=== PATIENT | female | born 1960 | race Caucasian/White ===

== ENCOUNTER 2017-09-29 13:18 | Inpatient (IN) ==
[2017-09-29] MEDS ORDERED: ONDANSETRON 4 MG/2 ML VIAL IV STA (14:28)
[2017-09-29] MEDS ORDERED: MORPHINE 2 MG/1 ML SYRINGE IV STA (14:28)
[2017-09-29] MEDS ORDERED: NITROGLYCERIN 2% OINT 1 INCH/GM PACK TOP STA (14:28)
[2017-09-29] MEDS ORDERED: FUROSEMIDE 100 MG/10 ML VIAL IV STA (14:28)
[2017-09-29] MEDS ORDERED: methylPREDNISolone SOD SUC 125 MG/2 ML VIAL IV STA (14:28)
[2017-09-29] MEDS ORDERED: ALBUTEROL 2.5 MG/3 ML NEB RESP TX SCH ×2 (14:30→18:32)
[2017-09-29] MEDS ORDERED: NITROGLYCERIN 2% OINT 1 INCH/GM PACK TOP ONE (14:48)
[2017-09-29] MEDS ORDERED: FUROSEMIDE 20 MG/2 ML VIAL ONE (14:48)
[2017-09-29] MEDS ORDERED: methylPREDNISolone SOD SUC 125 MG/2 ML VIAL ONE (14:48)
[2017-09-29] MEDS ORDERED: ONDANSETRON 4 MG/2 ML VIAL ONE (14:48)
[2017-09-29 15:16] LABS: Basophils # 0.1 10*3/uL (0.0-0.2); Basophils % 0.7 % (0.0-0.8); Eosinophils # 0.1 10*3/uL (0.0-0.87); Eosinophils % 1.7 % (0.00-10.9); Hematocrit 40.8 VOL% (35.7-47.0); Hemoglobin 13.4 GM/DL (12.0-16.0); Immature Granulocytes % 0.4 %; Immature Granulocytes Absolute 0.03 #; Lymphocytes # 1.8 10*3/uL (1.4-4.0); Lymphocytes % 21.9 % (21.3-54.2); Mean Corpuscular HGB Conc 32.8 GM/DL (32-36); Mean Corpuscular Hemoglobin 30 PG (27-34); Mean Corpuscular Volume 90.9 FL (87-102); Mean Platelet Volume 11.2 FL (9.6-12.0); Monocytes # 0.6 10*3/uL (0.11-0.8); Monocytes % 6.7 % (1.7-12.7); Neutrophils # 5.7 10*3/uL (1.4-7.4); Neutrophils % 68.6 % (38.7-73.9); Platelet Count 242 T/CUMM (130-400); Red Blood Count 4.49 MC/CUMM (3.8-5.5); Red Cell Distribution Width 13.8 % (9.3-17.3); White Blood Count 8.4 T/CUMM (4-12)
[2017-09-29 15:21] LABS: Apearance,Urine CLEAR (Clear); Bilirubin,Urine Negative (Negative); Blood, Urine Negative (Negative); Glucose,Urine (UA) Negative (Negative); Hyaline Casts,Urine 1 /LPF (0-3); Ketones,Urine Negative (Negative); Mucus,Urine Occasional /LPF (Occasional); Nitrite,Urine Negative (Negative); Protein,Urine Negative; Squamous Epithelial Cell,Urine Occasional /HPF (0-10); Urine Color Colorless (Yellow); Urine Specific Gravity 1.004 (1.001-1.035); Urine Urobilinogen < 2.0 EU/DL (0.2-1.0)
[2017-09-29 15:26] LABS: INR 0.9
[2017-09-29 15:34] LABS: Barbiturates Screen,Urine Negative (Negative); Benzodiazepines Screen,Urine Negative (Negative); Cannabinoid Screen,Urine Negative (Negative); Opiate Screen,Urine Negative (Negative); Phencyclidine Screen,Urine Negative (Negative)
[2017-09-29 15:52] LABS: Albumin 3.5 G/DL (3.4-5.0); Bilirubin,Total 1.1 MG/DL (0.2-1.0); Calcium 8.8 MG/DL (8.5-10.1); Magnesium 2.3 MG/DL (1.8-2.4); Osmolality,Calculated 281.1 MOS/KG (273-304); Potassium 4.2 MMOL/L (3.5-5.1); Total Protein 7.9 G/DL (6.4-8.3)
[2017-09-29 15:53] LABS: Troponin I Only 0.054 NG/ML (0.00-0.045)
[2017-09-29] MEDS ORDERED: ASPIRIN 325 MG TABLET PO PRN (18:32)
[2017-09-29] MEDS ORDERED: ACETAMINOPHEN 325 MG TABLET PO PRN (18:32)
[2017-09-30 05:49] LABS: Basophils % 0.1 % (0.0-0.8); Hematocrit 40.4 VOL% (35.7-47.0); Immature Granulocytes % 0.7 %; Immature Granulocytes Absolute 0.06 #; Lymphocytes # 0.6 10*3/uL (1.4-4.0); Lymphocytes % 6.2 % (21.3-54.2); Mean Corpuscular HGB Conc 32.2 GM/DL (32-36); Mean Corpuscular Hemoglobin 29 PG (27-34); Mean Corpuscular Volume 89.8 FL (87-102); Mean Platelet Volume 11.7 FL (9.6-12.0); Monocytes # 0.1 10*3/uL (0.11-0.8); Neutrophils # 8.2 10*3/uL (1.4-7.4); Platelet Count 230 T/CUMM (130-400); Red Cell Distribution Width 13.4 % (9.3-17.3); White Blood Count 8.9 T/CUMM (4-12)
[2017-09-30 06:10] LABS: Band Neutrophils 1 % (0-10); Hypochromasia 1+; Lymphocytes 5 % (20-55); Microcytosis 1+; Segmented Neutrophils 89 % (50-85); Total Cells Counted 100
[2017-09-30 06:11] LABS: Platelet Estimate Normal
[2017-09-30 06:27] LABS: Osmolality,Calculated 284.1 MOS/KG (273-304); Potassium 4.3 MMOL/L (3.5-5.1)
[2017-09-30] MEDS ORDERED: FUROSEMIDE 40 MG/4 ML VIAL IV SCH (08:00)
[2017-09-30] MEDS ORDERED: IBUPROFEN 600 MG TABLET PO PRN (08:25)
[2017-09-30] MEDS ORDERED: LISINOPRIL 5 MG TABLET PO SCH (09:00)
[2017-09-30 16:22] VITALS: BP 124/58
[2017-09-30] MEDS ORDERED: IBUPROFEN 600 MG TABLET PO SCH (21:00)
[2017-09-30] MEDS ORDERED: CARVEDILOL 3.125 MG TABLET PO SCH (21:00)
[2017-10-01] MEDS ORDERED: LISINOPRIL 2.5 MG TABLET PO SCH (09:00)
[2017-10-01] MEDS ORDERED: METOPROLOL SUCCINATE XL 25 MG TABLET PO SCH (09:00)
== END 2017-09-30 16:15 | disposition home or self-care (01) | DRG 194 ==
LOC: EDBD → EDUNIT# → N.ED 13:18 → SUATTDRO 15:42 → N.EDINP 15:42 → N.4E 18:24
PROVIDERS: ATTEND Internal Medicine

== ENCOUNTER 2020-07-15 04:19 | Inpatient (IN) ==
[2020-07-15] MEDS ORDERED: ONDANSETRON 4 MG/2 ML VIAL IV PRN (05:49)
[2020-07-15] MEDS ORDERED: ALBUTEROL 2.5 MG/3 ML NEB RESP TX PRN (05:49)
[2020-07-15] MEDS ORDERED: PANTOPRAZOLE 40 MG VIAL IV SCH (06:00)
[2020-07-15] MEDS: NOREPINEPHRINE 8 MG in SODIUM CHLORIDE 0.9% 242 ML IV SCH ×2 (06:18→13:47)
[2020-07-15] MEDS ORDERED: ATROPINE 1 MG/10 ML SYRINGE ONE (06:20)
[2020-07-15] MEDS ORDERED: SODIUM BICARBONATE 50 MEQ/50 ML SYRINGE IV ONE (06:20)
[2020-07-15] MEDS ORDERED: EPINEPHrine 1 MG/10 ML SYRINGE ONE (06:20)
[2020-07-15] MEDS: DOPamine 800 MG/250 ML PREMIX IV PRN ×2 (06:23→22:07)
[2020-07-15] MEDS ORDERED: SODIUM CHLORIDE 0.9% 1,000 ML IV ONE (06:42)
[2020-07-15] MEDS ORDERED: MIDAZOLAM 2 MG/2 ML VIAL IV ONE (07:28)
[2020-07-15] MEDS ORDERED: MIDAZOLAM 2 MG/2 ML VIAL IV PRN (07:28)
[2020-07-15 07:32] LABS: ABG Base Excess -6.7 MMOL/L (-2.5-2.5); ABG Oxygen Saturation 99.6 % (95-100); ABG PCO2 39.6 MM HG (35-48); ABG PH 7.298 (7.35-7.45); ABG TCO2 17.3 MMOL/L (23-27)
[2020-07-15 07:37] LABS: Basophils # 0.1 10*3/uL (0.0-0.2); Basophils % 0.3 % (0.0-0.8); Hematocrit 37.6 VOL% (35.7-47.0); Hemoglobin 12.2 GM/DL (12.0-16.0); Immature Granulocytes % 2.2 %; Immature Granulocytes Absolute 0.82 #; Lymphocytes # 0.9 10*3/uL (1.4-4.0); Lymphocytes % 2.5 % (21.3-54.2); Mean Corpuscular HGB Conc 32.4 GM/DL (32-36); Mean Corpuscular Volume 88.3 FL (87-102); Mean Platelet Volume 9.7 FL (9.6-12.0); Monocytes % 4.8 % (1.7-12.7); NRBC # 0.02 10*3/uL; Neutrophils % 90.2 % (38.7-73.9); Platelet Count 163 T/CUMM (130-400); Red Blood Count 4.26 MC/CUMM (3.8-5.5); Red Cell Distribution Width 14.4 % (9.3-17.3); White Blood Count 36.7 T/CUMM (4-12)
[2020-07-15] MEDS ORDERED: fentaNYL 100 MCG/2 ML VIAL IV PRN (07:37)
[2020-07-15 07:53] LABS: INR 2.1; PT Patient Result 21.6 SECS (9.8-11.9); Partial Thromboplastin Time 33.7 SECS (23.9-33.8)
[2020-07-15] MEDS ORDERED: POTASSIUM CHLORIDE RIDER 20 MEQ in PREMIX 1 EACH IV PRN (08:00)
[2020-07-15] MEDS: MIDAZOLAM 100 MG in SODIUM CHLORIDE 0.9% 80 ML IV PRN ×2 (08:06→23:50)
[2020-07-15 08:07] LABS: CKMB % 3.1 %
[2020-07-15] MEDS: fentaNYL INJ 1,250 MCG in SODIUM CHLORIDE 0.9% 225 ML IV SCH ×3 (08:10→23:48)
[2020-07-15] MEDS: CISATRACURIUM 200 MG in SODIUM CHLORIDE 0.9% 180 ML IV PRN (08:12)
[2020-07-15 08:13] LABS: Alanine Aminotransferase 2133 U/L (13-56); Albumin 2.4 G/DL (3.4-5.0); Alkaline Phosphatase 131 U/L (45-117); Aspartate Amino Transferase 5008 U/L (0-37); Blood Urea Nitrogen 36 MG/DL (7-18); Calcium 8.8 MG/DL (8.5-10.1); Estimated Glom Filtration Rate 20 ML/MIN; Glucose 142 MG/DL (74-106); Osmolality,Calculated 273.5 MOS/KG (273-304); Total Protein 6.1 G/DL (6.4-8.3)
[2020-07-15 08:14] LABS: Bacteria,Urine Moderate /HPF (Few); Bilirubin,Urine Negative (Negative); Blood, Urine Large mg/dL (Negative); Glucose,Urine (UA) Negative (Negative); Ketones,Urine Negative (Negative); Nitrite,Urine Negative (Negative); Protein,Urine 100 MG/DL; RBC,Urine 70 /HPF (0-4); Squamous Epithelial Cell,Urine Occasional /HPF (0-10); Urine Appearance CLOUDY (Clear); Urine Color Yellow (Yellow); Urine Urobilinogen < 2.0 EU/DL (0.2-1.0); WBC,Urine 95 /HPF (0-6)
[2020-07-15 08:24] LABS: Band Neutrophils 16 % (0-10); Lymphocytes 1 % (20-55); Segmented Neutrophils 78 % (50-85); Total Cells Counted 100
[2020-07-15 08:25] LABS: Hypochromasia 1+; Microcytosis Slight; Platelet Estimate Adequate
[2020-07-15] MEDS: LACTATED RINGERS 1,000 ML IV SCH ×2 (09:34→19:40)
[2020-07-15 10:03] LABS: Troponin I 1.47 NG/ML (0.00-0.045)
[2020-07-15] MEDS: INSULIN REGULAR 100 UNIT/ML IV SCH ×4 (10:03→20:28)
[2020-07-15] MEDS: PANTOPRAZOLE 40 MG VIAL IV SCH (10:07)
[2020-07-15] MEDS: methylPREDNISolone SOD SUC 40 MG/1 ML VIAL IV SCH ×3 (10:08→23:13)
[2020-07-15] MEDS: MEROPENEM 500 MG in SODIUM CHLORIDE 0.9% 100 ML IV SCH ×3 (10:25→20:31)
[2020-07-15 12:06] LABS: ABG HCO3 18.8 MMOL/L (20-26); ABG Oxygen Saturation 98.9 % (95-100); ABG PCO2 31.1 MM HG (35-48); ABG PH 7.399 (7.35-7.45); ABG PO2 152.3 MM HG (80-95); ABG TCO2 19.7 MMOL/L (23-27)
[2020-07-15 13:40] LABS: Basophils # 0.1 10*3/uL (0.0-0.2); Basophils % 0.2 % (0.0-0.8); Hematocrit 36.9 VOL% (35.7-47.0); Hemoglobin 12.2 GM/DL (12.0-16.0); Immature Granulocytes % 0.9 %; Immature Granulocytes Absolute 0.31 #; Lymphocytes # 0.9 10*3/uL (1.4-4.0); Lymphocytes % 2.5 % (21.3-54.2); Mean Corpuscular HGB Conc 33.1 GM/DL (32-36); Mean Corpuscular Volume 85.8 FL (87-102); Mean Platelet Volume 10.1 FL (9.6-12.0); Monocytes % 3.3 % (1.7-12.7); Neutrophils % 93.1 % (38.7-73.9); Platelet Count 137 T/CUMM (130-400)
[2020-07-15 13:47] LABS: CKMB % 3.6 %; Calcium 8.5 MG/DL (8.5-10.1); Osmolality,Calculated 280.4 MOS/KG (273-304)
[2020-07-15 13:55] LABS: PT Patient Result 20.6 SECS (9.8-11.9); Partial Thromboplastin Time 31.9 SECS (23.9-33.8)
[2020-07-15 14:25] LABS: Troponin I 1.43 NG/ML (0.00-0.045)
[2020-07-15 18:40] LABS: Giant Platelets 1+; Hypochromasia 1+; Lymphocytes 4 % (20-55); Segmented Neutrophils 94 % (50-85); Total Cells Counted 100
[2020-07-15 20:01] LABS: Basophils % 0.2 % (0.0-0.8); Hematocrit 35.4 VOL% (35.7-47.0); Hemoglobin 11.9 GM/DL (12.0-16.0); Immature Granulocytes % 0.9 %; Immature Granulocytes Absolute 0.24 #; Lymphocytes # 0.9 10*3/uL (1.4-4.0); Lymphocytes % 3.5 % (21.3-54.2); Mean Corpuscular HGB Conc 33.6 GM/DL (32-36); Mean Corpuscular Volume 85.5 FL (87-102); Mean Platelet Volume 10.3 FL (9.6-12.0); Monocytes % 2.6 % (1.7-12.7); Neutrophils % 92.8 % (38.7-73.9); Platelet Count 119 T/CUMM (130-400); Red Blood Count 4.14 MC/CUMM (3.8-5.5); White Blood Count 25.8 T/CUMM (4-12)
[2020-07-15 20:13] LABS: INR 1.9; PT Patient Result 19.5 SECS (9.8-11.9); Partial Thromboplastin Time 29.6 SECS (23.9-33.8)
[2020-07-15 20:19] LABS: Blood Urea Nitrogen 46 MG/DL (7-18); Calcium 8.3 MG/DL (8.5-10.1); Estimated Glom Filtration Rate 19 ML/MIN; Glucose 153 MG/DL (74-106); Osmolality,Calculated 282.2 MOS/KG (273-304)
[2020-07-15 20:50] LABS: Lymphocytes 4 % (20-55); Segmented Neutrophils 94 % (50-85); Total Cells Counted 100
[2020-07-15] MEDS ORDERED: ENOXAPARIN 40 MG/0.4 ML SYRINGE SUBCUT SCH (21:00)
[2020-07-15] MEDS ORDERED: MINERAL OIL/PETROLATUM OPH OINT 3.5 GM TUBE BOTH EYES PRN (23:28)
[2020-07-16] MEDS: INSULIN REGULAR 100 UNIT/ML IV SCH ×10 (00:26→23:25)
[2020-07-16] MEDS: MINERAL OIL/PETROLATUM OPH OINT 3.5 GM TUBE BOTH EYES SCH ×6 (00:28→20:43)
[2020-07-16 01:01] LABS: INR 1.9; PT Patient Result 19.3 SECS (9.8-11.9); Partial Thromboplastin Time 31.1 SECS (23.9-33.8)
[2020-07-16 01:16] LABS: Band Neutrophils 6 % (0-10); Segmented Neutrophils 93 % (50-85)
[2020-07-16 01:17] LABS: Platelet Estimate Normal; Total Cells Counted 100
[2020-07-16] MEDS: CISATRACURIUM 200 MG in SODIUM CHLORIDE 0.9% 180 ML IV PRN ×2 (01:32→21:07)
[2020-07-16 01:43] LABS: Basophils % 0.2 % (0.0-0.8); Hematocrit 37.8 VOL% (35.7-47.0); Hemoglobin 12.6 GM/DL (12.0-16.0); Immature Granulocytes % 0.7 %; Immature Granulocytes Absolute 0.17 #; Lymphocytes # 0.8 10*3/uL (1.4-4.0); Lymphocytes % 3.4 % (21.3-54.2); Mean Corpuscular HGB Conc 33.3 GM/DL (32-36); Mean Corpuscular Volume 86.1 FL (87-102); Mean Platelet Volume 10.6 FL (9.6-12.0); Monocytes % 3.2 % (1.7-12.7); NRBC # 0.02 10*3/uL; Neutrophils % 92.5 % (38.7-73.9); Platelet Count 126 T/CUMM (130-400); Red Blood Count 4.39 MC/CUMM (3.8-5.5); White Blood Count 23.7 T/CUMM (4-12)
[2020-07-16 02:00] LABS: Blood Urea Nitrogen 49 MG/DL (7-18); Estimated Glom Filtration Rate 19 ML/MIN; Glucose 142 MG/DL (74-106); Osmolality,Calculated 282.2 MOS/KG (273-304)
[2020-07-16] MEDS: MEROPENEM 500 MG in SODIUM CHLORIDE 0.9% 100 ML IV SCH ×4 (03:00→20:42)
[2020-07-16 04:17] LABS: ABG HCO3 18.8 MMOL/L (20-26); ABG Oxygen Saturation 96.4 % (95-100); ABG PCO2 35.4 MM HG (35-48); ABG PH 7.323 (7.35-7.45); ABG TCO2 16.2 MMOL/L (23-27)
[2020-07-16 04:58] LABS: Basophils # 0.1 10*3/uL (0.0-0.2); Basophils % 0.3 % (0.0-0.8); Hematocrit 39.4 VOL% (35.7-47.0); Hemoglobin 13.2 GM/DL (12.0-16.0); Immature Granulocytes Absolute 0.26 #; Lymphocytes # 1.1 10*3/uL (1.4-4.0); Lymphocytes % 3.9 % (21.3-54.2); Mean Corpuscular HGB Conc 33.5 GM/DL (32-36); Mean Corpuscular Volume 85.3 FL (87-102); Mean Platelet Volume 11.4 FL (9.6-12.0); Monocytes % 3.4 % (1.7-12.7); Neutrophils % 91.4 % (38.7-73.9); Platelet Count 118 T/CUMM (130-400); Red Blood Count 4.62 MC/CUMM (3.8-5.5); Red Cell Distribution Width 14.1 % (9.3-17.3); White Blood Count 26.8 T/CUMM (4-12)
[2020-07-16] MEDS: LACTATED RINGERS 1,000 ML IV SCH ×2 (05:00→15:17)
[2020-07-16 05:18] LABS: Band Neutrophils 3 % (0-10); Lymphocytes 1 % (20-55); Platelet Estimate Normal; Segmented Neutrophils 93 % (50-85); Total Cells Counted 100
[2020-07-16] MEDS: NOREPINEPHRINE 8 MG in SODIUM CHLORIDE 0.9% 242 ML IV SCH ×2 (06:13→15:57)
[2020-07-16] MEDS: methylPREDNISolone SOD SUC 40 MG/1 ML VIAL IV SCH ×3 (06:41→23:43)
[2020-07-16 06:53] LABS: INR 1.9; PT Patient Result 19.3 SECS (9.8-11.9); Partial Thromboplastin Time 31.1 SECS (23.9-33.8)
[2020-07-16 06:58] LABS: Albumin 2.2 G/DL (3.4-5.0); Bilirubin,Total 2.9 MG/DL (0.2-1.0); Calcium 7.8 MG/DL (8.5-10.1); Osmolality,Calculated 278.5 MOS/KG (273-304); Total Protein 5.4 G/DL (6.4-8.3)
[2020-07-16 07:00] LABS: Troponin I 0.731 NG/ML (0.00-0.045)
[2020-07-16] MEDS: DOPamine 800 MG/250 ML PREMIX IV PRN ×2 (08:05→17:06)
[2020-07-16] MEDS: fentaNYL INJ 1,250 MCG in SODIUM CHLORIDE 0.9% 225 ML IV SCH (08:28)
[2020-07-16] MEDS ORDERED: ACETAMINOPHEN 325 MG/10.15 ML UDCUP PO PRN (09:00)
[2020-07-16] MEDS: MIDAZOLAM 100 MG in SODIUM CHLORIDE 0.9% 80 ML IV PRN ×2 (09:11→20:13)
[2020-07-16 09:38] LABS: Basophils # 0.1 10*3/uL (0.0-0.2); Basophils % 0.2 % (0.0-0.8); Eosinophils # 0.1 10*3/uL (0.0-0.87); Eosinophils % 0.2 % (0.00-10.9); Hematocrit 38.7 VOL% (35.7-47.0); Immature Granulocytes % 1.3 %; Immature Granulocytes Absolute 0.43 #; Lymphocytes # 1.1 10*3/uL (1.4-4.0); Lymphocytes % 3.2 % (21.3-54.2); Mean Corpuscular HGB Conc 33.6 GM/DL (32-36); Mean Corpuscular Volume 85.1 FL (87-102); Mean Platelet Volume 11.4 FL (9.6-12.0); NRBC # 0.02 10*3/uL; Neutrophils % 92.1 % (38.7-73.9); Platelet Count 149 T/CUMM (130-400); Red Blood Count 4.55 MC/CUMM (3.8-5.5); Red Cell Distribution Width 14.2 % (9.3-17.3); White Blood Count 32.9 T/CUMM (4-12)
[2020-07-16] MEDS: PANTOPRAZOLE 40 MG VIAL IV SCH (09:40)
[2020-07-16 09:51] LABS: INR 1.8; Partial Thromboplastin Time 32.4 SECS (23.9-33.8)
[2020-07-16 10:15] LABS: Band Neutrophils 5 % (0-10); Lymphocytes 3 % (20-55); Segmented Neutrophils 88 % (50-85); Total Cells Counted 100
[2020-07-16 10:16] LABS: Hypochromasia 1+
[2020-07-16 10:17] LABS: Microcytosis 1+; Ovalocytes Slight; Platelet Estimate Adequate
[2020-07-16] MEDS: PIPERACILLIN/TAZOBACTAM 3,375 MG in SODIUM CHLORIDE 0.9% 100 ML IV SCH ×2 (11:16→23:46)
[2020-07-16 13:01] LABS: Calcium 7.4 MG/DL (8.5-10.1); Osmolality,Calculated 281.4 MOS/KG (273-304)
[2020-07-16 15:38] LABS: Basophils # 0.1 10*3/uL (0.0-0.2); Basophils % 0.2 % (0.0-0.8); Hematocrit 38.7 VOL% (35.7-47.0); Hemoglobin 13.1 GM/DL (12.0-16.0); Immature Granulocytes % 1.2 %; Lymphocytes # 0.9 10*3/uL (1.4-4.0); Lymphocytes % 2.8 % (21.3-54.2); Mean Corpuscular HGB Conc 33.9 GM/DL (32-36); Mean Corpuscular Volume 85.2 FL (87-102); Monocytes % 3.2 % (1.7-12.7); NRBC # 0.06 10*3/uL; Neutrophils % 92.6 % (38.7-73.9); Platelet Count 143 T/CUMM (130-400); Red Blood Count 4.54 MC/CUMM (3.8-5.5); Red Cell Distribution Width 14.4 % (9.3-17.3); White Blood Count 33.1 T/CUMM (4-12)
[2020-07-16 15:51] LABS: INR 1.7; PT Patient Result 18.1 SECS (9.8-11.9)
[2020-07-16 16:02] LABS: Anisocytosis 1+; Band Neutrophils 4 % (0-10); Burr Cells 1+; Eosinophils 1 % (0-10); Lymphocytes 2 % (20-55); Segmented Neutrophils 91 % (50-85); Total Cells Counted 100
[2020-07-16 16:03] LABS: Elliptocytes Few; Platelet Estimate Adequate; Polychromasia Slight
[2020-07-16 18:45] LABS: Calcium 7.2 MG/DL (8.5-10.1); Osmolality,Calculated 281.5 MOS/KG (273-304)
[2020-07-16 20:25] LABS: ABG Base Excess -9.1 MMOL/L (-2.5-2.5); ABG HCO3 17.2 MMOL/L (20-26); ABG Oxygen Saturation 99.2 % (95-100); ABG PCO2 33.7 MM HG (35-48); ABG PH 7.299 (7.35-7.45); ABG TCO2 14.7 MMOL/L (23-27)
[2020-07-16] MEDS: ENOXAPARIN 30 MG/0.3 ML SYRINGE SUBCUT SCH (21:05)
[2020-07-16 22:06] LABS: Basophils # 0.1 10*3/uL (0.0-0.2); Basophils % 0.2 % (0.0-0.8); Hematocrit 38.9 VOL% (35.7-47.0); Hemoglobin 12.9 GM/DL (12.0-16.0); Immature Granulocytes % 1.4 %; Immature Granulocytes Absolute 0.43 #; Lymphocytes # 0.8 10*3/uL (1.4-4.0); Lymphocytes % 2.6 % (21.3-54.2); Mean Corpuscular HGB Conc 33.2 GM/DL (32-36); Mean Corpuscular Volume 86.3 FL (87-102); Mean Platelet Volume 11.7 FL (9.6-12.0); Monocytes % 3.1 % (1.7-12.7); Neutrophils % 92.7 % (38.7-73.9); Platelet Count 142 T/CUMM (130-400); Red Blood Count 4.51 MC/CUMM (3.8-5.5); Red Cell Distribution Width 14.5 % (9.3-17.3)
[2020-07-16 22:13] LABS: INR 1.7; PT Patient Result 17.4 SECS (9.8-11.9); Partial Thromboplastin Time 30.7 SECS (23.9-33.8)
[2020-07-16 22:29] LABS: Anisocytosis 1+; Band Neutrophils 1 % (0-10); Lymphocytes 1 % (20-55); Segmented Neutrophils 97 % (50-85); Total Cells Counted 100
[2020-07-16 22:30] LABS: Burr Cells 1+; Elliptocytes Few; Platelet Estimate Adequate; Polychromasia 1+; Target Cells Few
[2020-07-17] MEDS: MINERAL OIL/PETROLATUM OPH OINT 3.5 GM TUBE BOTH EYES SCH ×7 (00:30→23:23)
[2020-07-17] MEDS: INSULIN REGULAR 100 UNIT/ML IV SCH ×4 (00:30→06:53)
[2020-07-17] MEDS: LACTATED RINGERS 1,000 ML IV SCH (01:18)
[2020-07-17 01:24] LABS: Albumin 2.2 G/DL (3.4-5.0); Bilirubin,Total 2.1 MG/DL (0.2-1.0); CKMB % 7.1 %; Calcium 7.4 MG/DL (8.5-10.1); Osmolality,Calculated 280.5 MOS/KG (273-304); Total Protein 5.6 G/DL (6.4-8.3)
[2020-07-17 01:34] LABS: Troponin I 0.528 NG/ML (0.00-0.045)
[2020-07-17] MEDS: DOPamine 800 MG/250 ML PREMIX IV PRN ×3 (01:45→23:45)
[2020-07-17] MEDS: fentaNYL INJ 1,250 MCG in SODIUM CHLORIDE 0.9% 225 ML IV SCH ×2 (01:56→07:29)
[2020-07-17] MEDS: MEROPENEM 500 MG in SODIUM CHLORIDE 0.9% 100 ML IV SCH ×4 (01:57→21:07)
[2020-07-17 02:36] LABS: Calcium 6.8 MG/DL (8.5-10.1); Osmolality,Calculated 280.7 MOS/KG (273-304)
[2020-07-17 04:12] LABS: ABG Base Excess -8.6 MMOL/L (-2.5-2.5); ABG HCO3 17.6 MMOL/L (20-26); ABG Oxygen Saturation 98.8 % (95-100); ABG PH 7.298 (7.35-7.45); ABG TCO2 15.2 MMOL/L (23-27)
[2020-07-17 04:15] LABS: Basophils % 0.1 % (0.0-0.8); Hematocrit 39.1 VOL% (35.7-47.0); Hemoglobin 13.1 GM/DL (12.0-16.0); Immature Granulocytes % 1.8 %; Immature Granulocytes Absolute 0.55 #; Lymphocytes # 0.9 10*3/uL (1.4-4.0); Mean Corpuscular HGB Conc 33.5 GM/DL (32-36); Mean Corpuscular Volume 85.6 FL (87-102); Monocytes % 3.4 % (1.7-12.7); NRBC # 0.16 10*3/uL; Neutrophils % 91.7 % (38.7-73.9); Platelet Count 149 T/CUMM (130-400); Red Blood Count 4.57 MC/CUMM (3.8-5.5); Red Cell Distribution Width 14.6 % (9.3-17.3)
[2020-07-17 04:22] LABS: INR 1.6; Partial Thromboplastin Time 31.8 SECS (23.9-33.8)
[2020-07-17 04:39] LABS: Band Neutrophils 4 % (0-10); Lymphocytes 2 % (20-55); Nucleated Red Blood Cells 1 (0-5); Segmented Neutrophils 91 % (50-85); Total Cells Counted 100
[2020-07-17 04:40] LABS: Burr Cells Slight; Hypochromasia 1+; Ovalocytes Slight; Platelet Estimate Adequate
[2020-07-17 04:46] LABS: Bilirubin,Total 1.8 MG/DL (0.2-1.0); CKMB % 6.4 %; Calcium 6.9 MG/DL (8.5-10.1); Osmolality,Calculated 282.5 MOS/KG (273-304); Total Protein 5.6 G/DL (6.4-8.3); Troponin I 0.523 NG/ML (0.00-0.045)
[2020-07-17] MEDS: NOREPINEPHRINE 8 MG in SODIUM CHLORIDE 0.9% 242 ML IV SCH ×2 (06:56→18:19)
[2020-07-17] MEDS ORDERED: POTASSIUM CHLORIDE RIDER 20 MEQ in PREMIX 1 EACH IV PRN (07:00)
[2020-07-17] MEDS ORDERED: MAGNESIUM SULF RIDER 1 GM in PREMIX 1 EACH IV PRN (07:48)
[2020-07-17] MEDS ORDERED: POTASSIUM CHLORIDE RIDER 10 MEQ in PREMIX 1 EACH IV PRN (07:48)
[2020-07-17] MEDS: methylPREDNISolone SOD SUC 40 MG/1 ML VIAL IV SCH ×3 (08:50→22:15)
[2020-07-17] MEDS: PANTOPRAZOLE 40 MG VIAL IV SCH (08:55)
[2020-07-17] MEDS: INSULIN REGULAR 100 UNIT/ML SUBCUT SCH ×5 (09:19→23:57)
[2020-07-17] MEDS: PIPERACILLIN/TAZOBACTAM 3,375 MG in SODIUM CHLORIDE 0.9% 100 ML IV SCH ×2 (11:31→22:15)
[2020-07-17] MEDS: SODIUM CHLORIDE 0.9% 1,000 ML IV SCH ×2 (11:35→21:06)
[2020-07-17 13:58] LABS: Barbiturates Screen,Urine Negative (Negative); Benzodiazepines Screen,Urine Positive (Negative); Cannabinoid Screen,Urine Negative (Negative); Opiate Screen,Urine Negative (Negative); Phencyclidine Screen,Urine Negative (Negative)
[2020-07-17] MEDS ORDERED: SODIUM POLYSTYRENE SULFATE 15 GM/60 ML BOTTLE PO ONE (15:47)
[2020-07-17] MEDS: ENOXAPARIN 30 MG/0.3 ML SYRINGE SUBCUT SCH (21:16)
[2020-07-18] MEDS: MEROPENEM 500 MG in SODIUM CHLORIDE 0.9% 100 ML IV SCH ×2 (02:54→08:35)
[2020-07-18] MEDS: INSULIN REGULAR 100 UNIT/ML SUBCUT SCH ×5 (03:22→21:36)
[2020-07-18] MEDS: MINERAL OIL/PETROLATUM OPH OINT 3.5 GM TUBE BOTH EYES SCH ×5 (03:23→21:20)
[2020-07-18 03:24] LABS: ABG Base Excess -7.3 MMOL/L (-2.5-2.5); ABG HCO3 18.5 MMOL/L (20-26); ABG Oxygen Saturation 97.1 % (95-100); ABG PH 7.345 (7.35-7.45); ABG PO2 95.1 MM HG (80-95); ABG TCO2 15.6 MMOL/L (23-27)
[2020-07-18 03:32] LABS: Basophils % 0.1 % (0.0-0.8); Hematocrit 35.2 VOL% (35.7-47.0); Hemoglobin 11.8 GM/DL (12.0-16.0); Immature Granulocytes % 1.7 %; Immature Granulocytes Absolute 0.42 #; Lymphocytes # 0.7 10*3/uL (1.4-4.0); Lymphocytes % 2.9 % (21.3-54.2); Mean Corpuscular HGB Conc 33.5 GM/DL (32-36); Mean Platelet Volume 11.2 FL (9.6-12.0); Monocytes % 3.8 % (1.7-12.7); NRBC # 0.12 10*3/uL; Neutrophils % 91.5 % (38.7-73.9); Platelet Count 142 T/CUMM (130-400); Red Blood Count 4.14 MC/CUMM (3.8-5.5); Red Cell Distribution Width 14.8 % (9.3-17.3); White Blood Count 24.9 T/CUMM (4-12)
[2020-07-18 03:50] LABS: Albumin 1.8 G/DL (3.4-5.0); Bilirubin,Total 1.4 MG/DL (0.2-1.0); Calcium 6.8 MG/DL (8.5-10.1); Osmolality,Calculated 291.2 MOS/KG (273-304); Total Protein 5.6 G/DL (6.4-8.3)
[2020-07-18 04:07] LABS: Eosinophils 1 % (0-10); Lymphocytes 2 % (20-55); Nucleated Red Blood Cells 1 (0-5); Segmented Neutrophils 96 % (50-85); Total Cells Counted 100
[2020-07-18 04:08] LABS: Platelet Estimate Normal
[2020-07-18] MEDS: NOREPINEPHRINE 8 MG in SODIUM CHLORIDE 0.9% 242 ML IV SCH (06:10)
[2020-07-18] MEDS: methylPREDNISolone SOD SUC 40 MG/1 ML VIAL IV SCH ×2 (06:33→15:58)
[2020-07-18] MEDS: SODIUM CHLORIDE 0.9% 1,000 ML IV SCH ×2 (06:33→16:41)
[2020-07-18] MEDS: fentaNYL INJ 1,250 MCG in SODIUM CHLORIDE 0.9% 225 ML IV SCH (06:35)
[2020-07-18] MEDS: PANTOPRAZOLE 40 MG VIAL IV SCH (08:34)
[2020-07-18] MEDS: PIPERACILLIN/TAZOBACTAM 3,375 MG in SODIUM CHLORIDE 0.9% 100 ML IV SCH (11:36)
[2020-07-18] MEDS: DOPamine 800 MG/250 ML PREMIX IV PRN (13:16)
[2020-07-18] MEDS ORDERED: DEXTROSE 50% 25 GM/50 ML VIAL IV ONE (16:23)
[2020-07-18] MEDS ORDERED: DEXTROSE 50% 25 GM/50 ML VIAL IV PRN (16:45)
[2020-07-18] MEDS: ENOXAPARIN 30 MG/0.3 ML SYRINGE SUBCUT SCH (21:37)
[2020-07-19] MEDS: methylPREDNISolone SOD SUC 40 MG/1 ML VIAL IV SCH ×2 (00:39→06:33)
[2020-07-19] MEDS: PIPERACILLIN/TAZOBACTAM 3,375 MG in SODIUM CHLORIDE 0.9% 100 ML IV SCH ×2 (00:39→10:45)
[2020-07-19] MEDS: INSULIN REGULAR 100 UNIT/ML SUBCUT SCH ×4 (01:07→13:03)
[2020-07-19] MEDS: MINERAL OIL/PETROLATUM OPH OINT 3.5 GM TUBE BOTH EYES SCH ×4 (01:07→13:04)
[2020-07-19] MEDS: SODIUM CHLORIDE 0.9% 1,000 ML IV SCH ×2 (03:45→14:36)
[2020-07-19 03:47] LABS: ABG Base Excess -6.4 MMOL/L (-2.5-2.5); ABG HCO3 19.2 MMOL/L (20-26); ABG Oxygen Saturation 99.5 % (95-100); ABG PCO2 27.3 MM HG (35-48); ABG PH 7.405 (7.35-7.45); ABG TCO2 15.3 MMOL/L (23-27)
[2020-07-19 04:06] LABS: Albumin 1.7 G/DL (3.4-5.0); Bilirubin,Total 1.1 MG/DL (0.2-1.0); Calcium 7.3 MG/DL (8.5-10.1); Osmolality,Calculated 306.3 MOS/KG (273-304); Total Protein 5.4 G/DL (6.4-8.3)
[2020-07-19] MEDS: DOPamine 800 MG/250 ML PREMIX IV PRN (04:59)
[2020-07-19] MEDS: NOREPINEPHRINE 8 MG in SODIUM CHLORIDE 0.9% 242 ML IV SCH (05:51)
[2020-07-19] MEDS ORDERED: ASPIRIN 325 MG TABLET PO SCH (09:00)
[2020-07-19] MEDS: PANTOPRAZOLE 40 MG VIAL IV SCH (09:47)
[2020-07-19] MEDS ORDERED: ASPIRIN CHEW 81 MG TABLET PO SCH (10:00)
[2020-07-19] MEDS ORDERED: INFLUENZA VIRUS VACCINE 0.5 ML SYRINGE IM ONE (11:11)
[2020-07-19] MEDS: MORPHINE 4 MG/1 ML VIAL IV PRN ×4 (15:23→22:30)
[2020-07-20] MEDS: MORPHINE 4 MG/1 ML VIAL IV PRN ×5 (01:25→12:51)
[2020-07-21] MEDS: MORPHINE 4 MG/1 ML VIAL IV PRN ×7 (02:49→22:09)
[2020-07-22] MEDS: MORPHINE 4 MG/1 ML VIAL IV PRN ×5 (01:24→10:53)
[2020-07-22 07:43] VITALS: BP 105/59
[2020-07-22] MEDS ORDERED: LORazepam 2 MG/1 ML VIAL IM PRN (10:03)
== END 2020-07-22 11:05 | disposition expired | DRG 130 ==
LOC: SUATTDRO 05:42 → N.ICU 05:42 → N.3E 07-20 17:45
PROVIDERS: ADMIT Internal Medicine; ATTEND Internal Medicine